=== PATIENT | female | born 1945 | race African-American/Black ===

== ENCOUNTER 2017-11-04 16:46 | Emergency (ER) | payer OTHER ==
[2017-11-04 18:13] LABS: BASOPHILS % 0.5 % (0.0-2.0); EOSINOPHILS % 3.4 % (0.0-5.0); HEMOGLOBIN. 13.1 g/dL (12.0-16.0); LYMPHOCYTES % 15.4 % (20.0-50.0); MEAN CORPUSCULAR HEMOGLOBIN 29.6 pg (28.0-32.0); MEAN CORPUSCULAR VOLUME 87.9 fL (81.0-99.0); MEAN PLATELET VOLUME 8.4 fl (7.4-10.4); MONOCYTES % 8.5 % (2.0-8.0); NEUTROPHILS % 72.2 % (40.0-76.0); PLATELET 279 x1000/uL (130-400); RED BLOOD CELL COUNT 4.44 mill/uL (4.2-5.4); RED CELL DISTRIBUTION WIDTH 14.5 % (11.6-14.6)
[2017-11-04 18:17] LABS: PROTHROMBIN TIME 10.7 sec (9.4-11.6)
[2017-11-04] MEDS ORDERED: SODIUM CHLORIDE 0.9% 1,000 ML IV ONE (18:23)
[2017-11-04] MEDS ORDERED: ONDANSETRON HCL 4MG/2ML VIAL IV STA (18:23)
[2017-11-04 18:41] LABS: CARBON DIOXIDE 32 mEq/L (21-32); CHLORIDE 103 mEq/L (98-107); ETHANOL BLOOD < 10 mg/dL; TROPONIN I < 0.02 ng/mL (0.00-0.04)
[2017-11-04] MEDS ORDERED: SODIUM CHLORIDE 0.9% 1,000 ML IV SCH (20:35)
[2017-11-04] MEDS ORDERED: TEMAZEPAM 15MG CAPSULE PO PRN (20:45)
[2017-11-04] MEDS ORDERED: DIPHENHYDRAMINE 50MG/ML VIAL IV PRN (20:45)
[2017-11-04] MEDS ORDERED: DEXTROSE 50% WATER 50ML SYRINGE IV PRN (20:45)
[2017-11-04] MEDS ORDERED: ACETAMINOPHEN 325MG TABLET PO PRN (20:45)
[2017-11-04] MEDS ORDERED: MAGNESIUM/ALUMINUM HYDROXIDE/SIMETHICONE 30ML UDC PO PRN (20:45)
[2017-11-04] MEDS ORDERED: ONDANSETRON HCL 4MG/2ML VIAL IV PRN (20:45)
[2017-11-04] MEDS ORDERED: CLONIDINE 0.1MG TABLET PO PRN (20:45)
[2017-11-04] MEDS ORDERED: INSULIN LISPRO 100 UNITS/ML SUBCUT SCH (21:00)
[2017-11-04] MEDS ORDERED: BLOOD SUGAR DIAGNOSTIC STRIP TEST SCH (21:00)
[2017-11-04] MEDS ORDERED: ATORVASTATIN CALCIUM 10MG TABLET PO SCH (21:00)
[2017-11-04 21:06] VITALS: BP 144/75
[2017-11-05] MEDS ORDERED: LISINOPRIL 10MG TABLET PO SCH (09:00)
[2017-11-05] MEDS ORDERED: ASPIRIN 81MG EC TABLET PO SCH (09:00)
== END 2017-11-04 21:05 | disposition left against medical advice (07) ==
LOC: ER 17:06 → EDBEDREQ 17:50 → EDBEDREQTM 19:01 → ER 21:05 → CANBEDREQ 11-05 06:46
DX: R55 Syncope and collapse (principal); I10 Essential (primary) hypertension; E11.9 Type 2 diabetes mellitus without complications; E78.00 Pure hypercholesterolemia, unspecified
CPT/HCPCS: 36415; 70450; 71045; 80053; 82962; 83036; 84484; 85025; 85610; 93005; 96361; 96374; 99285; G0482; J2405; 99284; J7030